=== PATIENT | female | born 1965 | race African-American/Black ===

== ENCOUNTER 2022-03-11 16:58 | Emergency (ER) | payer OTHER ==
[2022-03-11 17:12] VITALS: BP 161/88; PULSE 60; RESP 18; TEMP 97; BMI 30.1
[2022-03-11 19:33] LABS: BASO % 0.9 % (0-2.0); HEMATOCRIT 34.3 % (32.4-45.2); HEMOGLOBIN 11.3 GM/dL (10.7-15.3); LYMPH % 53.7 % (8-40); MCH 28.3 pg (25.7-33.7); MCHC 32.9 g/dl (32.0-36.0); MEAN CELL VOLUME 86.1 fl (80-96); MEAN PLT VOLUME 10.3 fl (7.5-11.1); MONO % 7.1 % (3.8-10.2); NEUT % 35.3 % (42.8-82.8); PLATELET COUNT 138 10^3/uL (134-434); RBC 3.98 M/mm3 (3.60-5.2); RDW 13.7 % (11.6-15.6); WHITE BLOOD COUNT 4.8 K/mm3 (4.0-10.0)
[2022-03-11 19:35] LABS: EPI CELLS >36 /uL (0-25.1); HYALINE CASTS 23 /uL (0-3.1); URINE APPEARANCE CLOUDY; URINE BACTERIA 2314 /uL (0-1359); URINE BILIRUBIN NEGATIVE (NEGATIVE); URINE COLOR YELLOW; URINE GLUCOSE (UA) NEGATIVE (NEGATIVE); URINE KETONE TRACE (NEGATIVE); URINE LEUK ESTERASE 2+ (NEGATIVE); URINE NITRITE NEGATIVE (NEGATIVE); URINE PROTEIN TRACE (NEGATIVE); URINE RBC 10 /uL (0-23.9); URINE WBC 595 /uL (0-25.8)
[2022-03-11 19:55] LABS: ALBUMIN 3.7 g/dl (3.4-5.0); CALCIUM 8.3 mg/dL (8.5-10.1); MAGNESIUM 1.9 mg/dL (1.8-2.4)
[2022-03-11 19:58] LABS: CREATININE 0.7 mg/dL (0.55-1.3); PHOSPHOROUS 3.2 mg/dL (2.5-4.9)
[2022-03-11 20:00] LABS: BILIRUBIN,TOTAL 0.3 mg/dL (0.2-1); TOT PROT 6.9 g/dl (6.4-8.2)
== END 2022-03-11 20:30 | disposition home or self-care (01) ==
LOC: JER 16:58
DX: R53.1 Weakness (principal)
CPT/HCPCS: 0241U-QW; 36415; 80053; 81003; 83735; 84100; 85025; 86850; 86900; 86901; 87086; 93005; 93010; 99284-25